=== PATIENT | female | born 1970 | race Caucasian/White ===

== ENCOUNTER 2020-05-08 18:06 | Inpatient (IN) ==
[2020-05-08] MEDS ORDERED: PHARMACY CONSULT - VANCOMYCIN XX SCH (19:00)
[2020-05-08] MEDS: NS 1000 ML 1,000 ML IV SCH (21:42)
[2020-05-08] MEDS: SNACK - Diabetic Appropriate PO SCH (21:43)
[2020-05-08 22:04] LABS: BASOPHILS # (AUTO) 0.1 X10^3/uL (0.0-0.1); BASOPHILS % (AUTO) 1.5 % (0.2-1.0); EOSINOPHILS # (AUTO) 0.2 x10^3/uL (0.0-0.2); EOSINOPHILS % (AUTO) 3.2 % (0.9-2.9); HEMATOCRIT 38.4 % (36.0-47.0); HEMOGLOBIN 12.9 g/dL (12.0-16.0); LYMPHOCYTES # (AUTO) 1.9 X10^3/uL (1.3-2.9); LYMPHOCYTES % (AUTO) 35.1 % (21.0-51.0); MEAN CORPUSCULAR HGB CONC 33.7 g/dL (33.0-35.0); MEAN CORPUSCULAR VOLUME 95.2 fL (80.0-100.0); MEAN PLATELET VOLUME 9.6 fL (7.4-11.0); MONOCYTES # (AUTO) 0.3 x10^3/uL (0.3-0.8); MONOCYTES % (AUTO) 5.8 % (0.0-13.0); NEUTROPHILS % (AUTO) 54.4 % (42.0-75.0); PLATELET COUNT 248 X10^3/uL (150.0-450.0); RED BLOOD COUNT 4.04 X10^6/uL (3.5-5.4); WHITE BLOOD COUNT 5.5 X10^3/uL (3.6-10.0)
[2020-05-08 22:21] VITALS: BMI 36.7
[2020-05-08 22:46] LABS: ALANINE AMINOTRANSFERASE 38 Units/L (12-78); ALBUMIN 4.1 g/dL (3.4-5.0); ALKALINE PHOSPHATASE 64 Units/L (46-116); ASPARTATE AMINO TRANSFERASE 71 Units/L (15-37); BLOOD UREA NITROGEN 12 mg/dL (7-18); CALCIUM 9.7 mg/dL (8.5-10.1); CARBON DIOXIDE 30.1 mmol/L (21-32); CHLORIDE 97 mmol/L (98-107); COR NA(FOR HYPERGLY) 140 mmol/L (136-145); CREATININE 1.13 mg/dL (0.55-1.02); SODIUM 138 mmol/L (136-145); eGFR NON BLACK RACES 55 (>60)
[2020-05-08] MEDS ORDERED: NS 250 ML IV 250 ML IV PRN (22:58)
[2020-05-09] MEDS ORDERED: VANCOMYCIN HCL VIAL 1.25 G 1.25 G in D5W 250 ML IV 250 ML IV SCH ×2
[2020-05-09] MEDS: ZOSYN VIAL 3.375 GRAMS 3.375 G in NS 100 ML IV + SPIKE MINIBAG* 100 ML IV SCH ×2 (01:06→09:02)
[2020-05-09 06:04] LABS: BASOPHILS # (AUTO) 0.1 X10^3/uL (0.0-0.1); BASOPHILS % (AUTO) 1.4 % (0.2-1.0); EOSINOPHILS # (AUTO) 0.2 x10^3/uL (0.0-0.2); EOSINOPHILS % (AUTO) 3.5 % (0.9-2.9); HEMATOCRIT 33.3 % (36.0-47.0); HEMOGLOBIN 11.4 g/dL (12.0-16.0); LYMPHOCYTES # (AUTO) 1.6 X10^3/uL (1.3-2.9); LYMPHOCYTES % (AUTO) 34.5 % (21.0-51.0); MEAN CORPUSCULAR HEMOGLOBIN 32.7 pg (27.0-34.0); MEAN CORPUSCULAR HGB CONC 34.3 g/dL (33.0-35.0); MEAN CORPUSCULAR VOLUME 95.3 fL (80.0-100.0); MEAN PLATELET VOLUME 9.3 fL (7.4-11.0); MONOCYTES # (AUTO) 0.4 x10^3/uL (0.3-0.8); NEUTROPHILS # (AUTO) 2.3 x10^3/uL (2.2-4.8); NEUTROPHILS % (AUTO) 51.6 % (42.0-75.0); PLATELET COUNT 201 X10^3/uL (150.0-450.0); WHITE BLOOD COUNT 4.5 X10^3/uL (3.6-10.0)
[2020-05-09 06:18] LABS: ALANINE AMINOTRANSFERASE 30 Units/L (12-78); ALBUMIN 3.2 g/dL (3.4-5.0); ALKALINE PHOSPHATASE 51 Units/L (46-116); ASPARTATE AMINO TRANSFERASE 52 Units/L (15-37); BLOOD UREA NITROGEN 11 mg/dL (7-18); CALCIUM 8.4 mg/dL (8.5-10.1); CARBON DIOXIDE 29.9 mmol/L (21-32); CHLORIDE 103 mmol/L (98-107); COR NA(FOR HYPERGLY) 142 mmol/L (136-145); CREATININE 1.04 mg/dL (0.55-1.02); SODIUM 140 mmol/L (136-145); TOTAL PROTEIN 6.3 g/dL (6.4-8.2); eGFR NON BLACK RACES > 60 (>60)
[2020-05-09] MEDS: VANCOMYCIN IV *PREMIX 1 G/200 ML BAG 1 G/200 ML PIGGYBACK IV SCH ×3 (09:02→21:03)
[2020-05-09] MEDS: NS 1000 ML 1,000 ML IV SCH ×2 (09:02→21:02)
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
[2020-05-09] MEDS: LOVENOX INJ 40 MG SYR SC SCH (11:53)
[2020-05-09] MEDS: HumuLIN R SUBCUT PRN ×2 (11:54→17:52)
[2020-05-09] MEDS: SNACK - Diabetic Appropriate PO SCH (20:00)
[2020-05-09] MEDS ORDERED: NS 100 ML IV + SPIKE MINIBAG* 100 ML IV ONE (21:30)
[2020-05-09] MEDS: ZOSYN VIAL 4.5 GRAMS 4.5 G in NS 100 ML IV 100 ML IV SCH (21:33)
[2020-05-10] MEDS ORDERED: NS 100 ML IV + SPIKE MINIBAG* 100 ML IV ONE ×2 (04:33→19:08)
[2020-05-10] MEDS: ZOSYN VIAL 4.5 GRAMS 4.5 G in NS 100 ML IV 100 ML IV SCH ×3 (05:01→21:19)
[2020-05-10] MEDS: NS 1000 ML 1,000 ML IV SCH ×3 (05:05→22:02)
[2020-05-10] MEDS ORDERED: PHARMACY COMMENT IV NR (05:30)
[2020-05-10 06:22] LABS: BASOPHILS # (AUTO) 0.1 X10^3/uL (0.0-0.1); BASOPHILS % (AUTO) 1.3 % (0.2-1.0); EOSINOPHILS # (AUTO) 0.2 x10^3/uL (0.0-0.2); EOSINOPHILS % (AUTO) 3.9 % (0.9-2.9); HEMATOCRIT 33.1 % (36.0-47.0); HEMOGLOBIN 11.1 g/dL (12.0-16.0); LYMPHOCYTES # (AUTO) 1.7 X10^3/uL (1.3-2.9); LYMPHOCYTES % (AUTO) 44.2 % (21.0-51.0); MEAN CORPUSCULAR HEMOGLOBIN 32.3 pg (27.0-34.0); MEAN CORPUSCULAR HGB CONC 33.6 g/dL (33.0-35.0); MEAN PLATELET VOLUME 9.3 fL (7.4-11.0); MONOCYTES # (AUTO) 0.3 x10^3/uL (0.3-0.8); MONOCYTES % (AUTO) 8.4 % (0.0-13.0); NEUTROPHILS # (AUTO) 1.6 x10^3/uL (2.2-4.8); NEUTROPHILS % (AUTO) 42.2 % (42.0-75.0); PLATELET COUNT 184 X10^3/uL (150.0-450.0); RED BLOOD COUNT 3.45 X10^6/uL (3.5-5.4); RED CELL DISTRIBUTION WIDTH 12.9 % (11.6-16.5); WHITE BLOOD COUNT 3.9 X10^3/uL (3.6-10.0)
[2020-05-10 06:40] LABS: ALANINE AMINOTRANSFERASE 31 Units/L (12-78); ALBUMIN 2.9 g/dL (3.4-5.0); ALKALINE PHOSPHATASE 41 Units/L (46-116); ASPARTATE AMINO TRANSFERASE 44 Units/L (15-37); BLOOD UREA NITROGEN 8 mg/dL (7-18); CALCIUM 8.5 mg/dL (8.5-10.1); CARBON DIOXIDE 28.7 mmol/L (21-32); CHLORIDE 105 mmol/L (98-107); COR CA(FOR HYPOALB) 9.4 mg/dL (8.5-10.1); COR NA(FOR HYPERGLY) 139 mmol/L (136-145); SODIUM 139 mmol/L (136-145); eGFR NON BLACK RACES > 60 (>60)
[2020-05-10 06:49] LABS: VANCOMYCIN,TROUGH 20.7 ug/mL (15-20)
[2020-05-10] MEDS: VANCOMYCIN IV *PREMIX 1 G/200 ML BAG 1 G/200 ML PIGGYBACK IV SCH (07:45)
[2020-05-10] MEDS: LOVENOX INJ 40 MG SYR SC SCH (08:45)
[2020-05-10] MEDS: SILVADENE TOP SCH ×2 (08:46→20:10)
[2020-05-10] MEDS ORDERED: GLUCOPHAGE ONE ×2 (09:47→19:05)
[2020-05-10] MEDS ORDERED: NORCO 10/325 TAB ONE (09:53)
[2020-05-10] MEDS ORDERED: NEURONTIN CAP 400 MG PO ONE (09:55)
[2020-05-10] MEDS ORDERED: PriLOSEC PO ONE (09:55)
[2020-05-10] MEDS ORDERED: SYNTHROID 50 mcg TAB ONE (09:55)
[2020-05-10] MEDS ORDERED: ZyrTEC TAB 10 MG ONE (09:55)
[2020-05-10] MEDS: GLUCOPHAGE PO SCH ×2 (09:58→20:09)
[2020-05-10] MEDS: NABUMETONE 500 MG PO SCH ×2 (09:58→20:07)
[2020-05-10] MEDS: NORCO 10/325 TAB PO SCH ×3 (09:59→21:18)
[2020-05-10] MEDS: ASPIRIN EC 81 MG PO SCH (09:59)
[2020-05-10] MEDS ORDERED: ZyrTEC TAB 10 MG PO SCH (10:00)
[2020-05-10] MEDS ORDERED: VANCOMYCIN HCL VIAL 1.25 G 1.25 G in D5W 250 ML IV 250 ML IV SCH (10:00)
[2020-05-10] MEDS: NEURONTIN CAP 400 MG PO SCH ×2 (10:01→20:07)
[2020-05-10] MEDS: PriLOSEC PO SCH ×2 (10:02→20:09)
[2020-05-10] MEDS: SYNTHROID 50 mcg TAB PO SCH (10:02)
[2020-05-10] MEDS: LOPRESSOR TAB 50 MG PO SCH (10:03)
[2020-05-10] MEDS: CELEXA PO SCH (10:03)
[2020-05-10] MEDS ORDERED: VANCOMYCIN HCL ONE (10:11)
[2020-05-10] MEDS ORDERED: NS 250 ML IV 250 ML IV ONE (10:13)
[2020-05-10] MEDS: SINGULAIR TAB 10 MG PO SCH (10:27)
[2020-05-10] MEDS: VANCOMYCIN HCL VIAL 1.25 G 1.25 G in NS 250 ML IV 250 ML IV SCH ×2 (10:43→20:10)
[2020-05-10] MEDS: VITAMIN B-12 PO SCH (10:45)
[2020-05-10] MEDS: CRESTOR TAB 10 MG PO SCH (20:08)
[2020-05-10] MEDS: SNACK - Diabetic Appropriate PO SCH (20:08)
[2020-05-10] MEDS: TRICOR TAB 160 MG PO SCH (20:08)
[2020-05-10] MEDS: ZANAFLEX PO SCH (20:12)
[2020-05-10] MEDS: ZESTRIL TAB 5 MG PO SCH (20:13)
[2020-05-10] MEDS: ZyrTEC TAB 10 MG PO SCH (20:19)
[2020-05-10] MEDS: XANAX PO PRN (21:19)
[2020-05-11] MEDS ORDERED: NS 100 ML IV + SPIKE MINIBAG* 100 ML IV ONE (04:15)
[2020-05-11] MEDS: ZOSYN VIAL 4.5 GRAMS 4.5 G in NS 100 ML IV 100 ML IV SCH ×3 (05:31→21:00)
[2020-05-11] MEDS: NORCO 10/325 TAB PO SCH ×3 (05:34→21:14)
[2020-05-11 06:29] LABS: BASOPHILS # (AUTO) 0.1 X10^3/uL (0.0-0.1); BASOPHILS % (AUTO) 1.3 % (0.2-1.0); EOSINOPHILS # (AUTO) 0.2 x10^3/uL (0.0-0.2); EOSINOPHILS % (AUTO) 3.8 % (0.9-2.9); LYMPHOCYTES # (AUTO) 2.2 X10^3/uL (1.3-2.9); LYMPHOCYTES % (AUTO) 50.5 % (21.0-51.0); MEAN CORPUSCULAR HEMOGLOBIN 32.5 pg (27.0-34.0); MEAN CORPUSCULAR HGB CONC 33.4 g/dL (33.0-35.0); MEAN CORPUSCULAR VOLUME 97.2 fL (80.0-100.0); MEAN PLATELET VOLUME 9.6 fL (7.4-11.0); MONOCYTES # (AUTO) 0.3 x10^3/uL (0.3-0.8); MONOCYTES % (AUTO) 5.9 % (0.0-13.0); NEUTROPHILS # (AUTO) 1.7 x10^3/uL (2.2-4.8); NEUTROPHILS % (AUTO) 38.5 % (42.0-75.0); PLATELET COUNT 215 X10^3/uL (150.0-450.0); RED BLOOD COUNT 3.39 X10^6/uL (3.5-5.4); RED CELL DISTRIBUTION WIDTH 13.4 % (11.6-16.5); WHITE BLOOD COUNT 4.4 X10^3/uL (3.6-10.0)
[2020-05-11 06:37] LABS: ALANINE AMINOTRANSFERASE 30 Units/L (12-78); ALBUMIN 3.2 g/dL (3.4-5.0); ALKALINE PHOSPHATASE 42 Units/L (46-116); ASPARTATE AMINO TRANSFERASE 43 Units/L (15-37); BLOOD UREA NITROGEN 8 mg/dL (7-18); CALCIUM 8.5 mg/dL (8.5-10.1); CARBON DIOXIDE 28.6 mmol/L (21-32); CHLORIDE 103 mmol/L (98-107); COR CA(FOR HYPOALB) 9.1 mg/dL (8.5-10.1); COR NA(FOR HYPERGLY) 139 mmol/L (136-145); CREATININE 0.86 mg/dL (0.55-1.02); SODIUM 138 mmol/L (136-145); TOTAL PROTEIN 6.5 g/dL (6.4-8.2); eGFR NON BLACK RACES > 60 (>60)
[2020-05-11] MEDS ORDERED: GLUCOPHAGE ONE ×2 (07:53→19:08)
[2020-05-11] MEDS: XANAX PO PRN ×2 (08:22→20:26)
[2020-05-11] MEDS: PriLOSEC PO SCH ×2 (08:22→20:29)
[2020-05-11] MEDS: VITAMIN B-12 PO SCH (08:22)
[2020-05-11] MEDS: CELEXA PO SCH (08:23)
[2020-05-11] MEDS: ASPIRIN EC 81 MG PO SCH (08:23)
[2020-05-11] MEDS: SYNTHROID 50 mcg TAB PO SCH (08:23)
[2020-05-11] MEDS: GLUCOPHAGE PO SCH ×2 (08:23→20:28)
[2020-05-11] MEDS: SINGULAIR TAB 10 MG PO SCH (08:23)
[2020-05-11] MEDS: LOPRESSOR TAB 50 MG PO SCH (08:23)
[2020-05-11] MEDS: SILVADENE TOP SCH ×2 (08:24→20:30)
[2020-05-11] MEDS: LOVENOX INJ 40 MG SYR SC SCH (08:24)
[2020-05-11] MEDS: NEURONTIN CAP 400 MG PO SCH ×2 (08:24→20:27)
[2020-05-11] MEDS: VANCOMYCIN HCL VIAL 1.25 G 1.25 G in NS 250 ML IV 250 ML IV SCH ×2 (08:25→21:14)
[2020-05-11] MEDS: NABUMETONE 500 MG PO SCH ×2 (08:25→20:29)
[2020-05-11] MEDS: LOMOTIL PO PRN (09:37)
[2020-05-11] MEDS: VSL#3 PO SCH (09:37)
[2020-05-11] MEDS: NS 1000 ML 1,000 ML IV SCH (11:34)
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
[2020-05-11] MEDS: SNACK - Diabetic Appropriate PO SCH (20:23)
[2020-05-11] MEDS: ZyrTEC TAB 10 MG PO SCH (20:26)
[2020-05-11] MEDS: CRESTOR TAB 10 MG PO SCH (20:26)
[2020-05-11] MEDS: TRICOR TAB 160 MG PO SCH (20:27)
[2020-05-11] MEDS: ZANAFLEX PO SCH (20:28)
[2020-05-11] MEDS ORDERED: PHARMACY COMMENT IV NR (20:30)
[2020-05-11] MEDS: ZESTRIL TAB 5 MG PO SCH (20:31)
[2020-05-11 21:06] LABS: CREATININE 0.88 mg/dL (0.55-1.02); VANCOMYCIN,TROUGH 19.8 ug/mL (15-20)
[2020-05-12] MEDS: NS 1000 ML 1,000 ML IV SCH (01:23)
[2020-05-12] MEDS: ZOSYN VIAL 4.5 GRAMS 4.5 G in NS 100 ML IV 100 ML IV SCH (05:11)
[2020-05-12] MEDS: NORCO 10/325 TAB PO SCH (05:11)
[2020-05-12 06:38] LABS: BASOPHILS % (AUTO) 1.3 % (0.2-1.0); EOSINOPHILS # (AUTO) 0.2 x10^3/uL (0.0-0.2); EOSINOPHILS % (AUTO) 3.8 % (0.9-2.9); HEMATOCRIT 30.9 % (36.0-47.0); HEMOGLOBIN 10.5 g/dL (12.0-16.0); LYMPHOCYTES # (AUTO) 1.9 X10^3/uL (1.3-2.9); LYMPHOCYTES % (AUTO) 49.5 % (21.0-51.0); MEAN CORPUSCULAR HEMOGLOBIN 32.6 pg (27.0-34.0); MEAN CORPUSCULAR HGB CONC 34.1 g/dL (33.0-35.0); MEAN CORPUSCULAR VOLUME 95.5 fL (80.0-100.0); MEAN PLATELET VOLUME 9.5 fL (7.4-11.0); MONOCYTES # (AUTO) 0.3 x10^3/uL (0.3-0.8); MONOCYTES % (AUTO) 7.6 % (0.0-13.0); NEUTROPHILS # (AUTO) 1.5 x10^3/uL (2.2-4.8); NEUTROPHILS % (AUTO) 37.8 % (42.0-75.0); PLATELET COUNT 178 X10^3/uL (150.0-450.0); RED BLOOD COUNT 3.23 X10^6/uL (3.5-5.4); WHITE BLOOD COUNT 3.9 X10^3/uL (3.6-10.0)
[2020-05-12 06:42] LABS: ALANINE AMINOTRANSFERASE 30 Units/L (12-78); ALBUMIN 2.9 g/dL (3.4-5.0); ALKALINE PHOSPHATASE 38 Units/L (46-116); ASPARTATE AMINO TRANSFERASE 57 Units/L (15-37); BLOOD UREA NITROGEN 6 mg/dL (7-18); CALCIUM 8.5 mg/dL (8.5-10.1); CARBON DIOXIDE 30.3 mmol/L (21-32); CHLORIDE 105 mmol/L (98-107); COR CA(FOR HYPOALB) 9.4 mg/dL (8.5-10.1); CREATININE 0.94 mg/dL (0.55-1.02); SODIUM 141 mmol/L (136-145); TOTAL PROTEIN 5.8 g/dL (6.4-8.2); eGFR NON BLACK RACES > 60 (>60)
[2020-05-12] MEDS ORDERED: GLUCOPHAGE ONE (07:52)
[2020-05-12] MEDS: NEURONTIN CAP 400 MG PO SCH (08:05)
[2020-05-12] MEDS: SINGULAIR TAB 10 MG PO SCH (08:05)
[2020-05-12] MEDS: VANCOMYCIN HCL VIAL 1.25 G 1.25 G in NS 250 ML IV 250 ML IV SCH (08:05)
[2020-05-12] MEDS: LOMOTIL PO PRN (08:05)
[2020-05-12] MEDS: XANAX PO PRN (08:06)
[2020-05-12] MEDS: CELEXA PO SCH (08:06)
[2020-05-12] MEDS: LOPRESSOR TAB 50 MG PO SCH (08:07)
[2020-05-12] MEDS: GLUCOPHAGE PO SCH (08:07)
[2020-05-12] MEDS: LOVENOX INJ 40 MG SYR SC SCH (08:07)
[2020-05-12] MEDS: PriLOSEC PO SCH (08:07)
[2020-05-12] MEDS: SYNTHROID 50 mcg TAB PO SCH (08:07)
[2020-05-12] MEDS: ASPIRIN EC 81 MG PO SCH (08:07)
[2020-05-12] MEDS: VITAMIN B-12 PO SCH (08:07)
[2020-05-12] MEDS: NABUMETONE 500 MG PO SCH (08:10)
[2020-05-12] MEDS: SILVADENE TOP SCH (08:10)
[2020-05-12 09:10] VITALS: BP 159/65
[2020-05-12] MEDS: VSL#3 PO SCH (09:28)
[2020-05-12] MEDS ORDERED: VITAMIN D (1.25MG) PO SCH (10:05)
== END 2020-05-12 11:30 | disposition home health service (06) | DRG 603 ==
LOC: MED/SURG 20:11
PROVIDERS: ADMIT Internal Medicine; ATTEND Internal Medicine
CPT/HCPCS: 36415; 80053; 80202; 82565; 85025; 86140; 87040; A4216; A4222; J1650; J1815; J2543; J3370; J7030; J7050; J7060